=== PATIENT | female | born 2000 | race Caucasian/White ===

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

== ENCOUNTER → 2023-12-27 | Outpatient (CLI) | payer BC ==
--- NOTE | 2023-12-27 07:46 | US ---
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 Transabdominal sonographic images of the pelvis were acquired. Date of LMP: Unknown EXAM MEASUREMENTS: Uterus: 6.0 x 2.9 x 4.2 cm Endometrial Stripe: 0.61 cm Right Ovary: 2.2 x 2.2 x 1.9 cm Left Ovary: 2.5 x 2.0 x 2.0 cm 1. Uterus: Retroflexed Appears wnl 2. Endometrium: wnl 3. Right Ovary: wnl 4. Left Ovary: wnl 5. Bilateral Adnexa: wnl 6. Posterior cul-de-sac: wnl IMPRESSION: No significant abnormality seen.
--- NOTE | 2023-12-27 07:48 | US ---
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 FINDINGS: EXAM MEASUREMENTS: Liver Length: 14.1 cm Gallbladder Wall: 0.22 cm CBD: 0.30 cm Spleen: 13.5 x 13.3 x 4.2 cm Right Kidney: 10.9 x 4.7 x 4.6 cm Left Kidney: 10.3 x 4.7 x 4.4 cm COMMUNITY FUNDRAISER NOTES: Pancreas: Tail obscured by overlying bowel gas Liver: wnl Gallbladder: wnl Evidence for sonographic Muniz's sign: No CBD: wnl Spleen: Slight splenomegaly Right Kidney: wnl Left Kidney: wnl Upper IVC: wnl Abd Aorta: wnl The liver is homogenous. The intrahepatic portion of the IVC and proximal abdominal aorta are within normal limits. There is no evidence of cholelithiasis. Common bile duct is unremarkable. The visu alized portions of the pancreas are homogenous. Kidneys are symmetric and free of hydronephrosis. N o renal lesions are seen. IMPRESSION: Mild splenomegaly.
== END | disposition home or self-care (01) ==
LOC: RADUSWWP 06:51
PROVIDERS: ATTEND Family Medicine
DX: R16.1 Splenomegaly, not elsewhere classified (principal); K30 Functional dyspepsia; N97.9 Female infertility, unspecified; N92.6 Irregular menstruation, unspecified; R11.0 Nausea
CPT/HCPCS: 76700; 76856

== ENCOUNTER → 2025-01-27 | Day surgery (SDC) | payer BC ==
[2025-01-23 14:30] VITALS: BMI 40.5
[2025-01-27 07:49] VITALS: BP 143/98; PULSE 107; RESP 16; TEMP 98.6
[2025-01-27] MEDS: IV FLUID CONTINUATION 1,000 ML IV ONE (07:55)
[2025-01-27] MEDS: SODIUM CHLORIDE 0.9% 1,000 ML IV SCH (07:58)
--- NOTE | 2025-01-27 18:13 | P.EPPROC ---
- EP Procedure Note Electrophysiology Procedure Note: Diagnosis: Recurrent syncope Twelve-lead EKG shows sinus mechanism normal MI narrow QRS normal ST segment normal QT interval Tilt table test per protocol baseline heart rate 91 beats a minute baseline blood pressure 121/59 mmHg Patient is tilted upright in angle of 70 degrees per protocol Minimal increase in heart rate No evidence for neurocardiogenic syncope No change in blood pressure Impression Normal twelve-lead EKG No evidence for neurocardiogenic syncope
== END ==
LOC: CATHEP 07:06
PROVIDERS: ATTEND Internal Medicine Clinical Cardiac Electrophysiology
DX: R55 Syncope and collapse (principal); R00.2 Palpitations; G90.1 Familial dysautonomia [Riley-Day]; Z82.49 Family history of ischemic heart disease and other diseases of the circulatory system; Z88.5 Allergy status to narcotic agent; Z88.8 Allergy status to other drugs, medicaments and biological substances
CPT/HCPCS: 81025; 93660